=== PATIENT | male | born 1955 | race Caucasian/White ===

== ENCOUNTER 2016-08-29 16:59 | Emergency (ER) | payer OTHER ==
[~2016-08-29] VITALS: Ht 167.6 cm; Wt 76.0 kg
[2016-08-29 17:00] VITALS: BP 192/90; PULSE 84; RESP 20; TEMP 98.7; O2SAT 96
[2016-08-29] MEDS ORDERED: LISI10TA3 PO (18:41)
[2016-08-29] MEDS ORDERED: DULO20 PO (18:43)
--- NOTE | 2016-08-29 19:03 | PD ---
HPI . "hernias" Chief Complaint: Abdominal Pain Time Seen by Provider: 18:35 Travel History International Travel<30 days: No Contact w/Intl Traveler<30days: No Traveled to known affect area: No History of Present Illness HPI 61-year-old male comes in complaining of "I have 3 hernias that are very painful ". Patient reports that he has had 2 hernias in his groin and one umbilical hernia. Reports that they have been getting progressively more painful over the past few months. He comes in today because he says his pain was severe. He has been living in [facility] for 5 months. He typically sees a nurse practitioner in [place] but has never seen a surgeon for his hernias. He also reports a "large bump" on his testicle which has been there for a few months. Patient denies any fevers, chills, nausea, vomiting, chest pain or shortness of breath. Reports dark urine, low back pain, and abdominal tenderness associated with the hernias. PFSH Past Medical History Cardiovascular Problems: Yes (HTN) Respiratory: Yes (COPD) Social History Alcohol Use: Yes Tobacco Use: Yes Substance Use: No Allergies-Medications (Allergen,Severity, Reaction): Coded Allergies: Penicillin (Verified Allergy, Severe, VOMITING, 08/29/16) Reported Meds & Prescriptions Reported Meds & Active Scripts Active Reported Cymbalta DR (Duloxetine HCl) 20 Mg Capdr 20 Mg PO DAILY Lisinopril 10 Mg Tab 10 Mg PO DAILY Review of Systems General / Constitutional: No: Fever, Chills, Weight Loss HENT: No: Headaches Cardiovascular: No: Chest Pain or Discomfort Respiratory: No: Shortness of Breath Gastrointestinal: Positive: Diarrhea, Abdominal Pain, No: Nausea, Vomiting Genitourinary: Positive: Dysuria, No: Frequency Musculoskeletal: Positive: Pain (low back pain) Physical Exam Narrative GENERAL: alert and awake in no acute distress. SKIN: Warm and dry. HEAD: Atraumatic. Normocephalic. EYES: Pupils equal and round. ENT: No nasal bleeding or discharge. Mucous membranes pink and moist. NECK: Trachea midline. Neck supple. CARDIOVASCULAR: Regular rate and rhythm, no murmurs. RESPIRATORY: good air movement bilaterally. Coarse breath sounds. No accessory muscle use. GASTROINTESTINAL: Abdomen soft and nondistended. Patient winced in pain when initially palpated but when he was distracted he was non-tender. Umbilical hernia is easily reducible. : No inguinal hernias appreciated. 2 cm mass in scrotum which was freely mobile and not attached to testicle. Purple in color. MUSCULOSKELETAL: No obvious deformities. No edema. NEUROLOGICAL: Awake and alert. No obvious cranial nerve deficits. Motor grossly within normal limits. Normal speech. PSYCHIATRIC: Appropriate mood and affect; insight and judgment normal. Data Data Last Documented VS Vital Signs Date Time Temp Pulse Resp B/P Pulse Ox O2 Delivery O2 Flow Rate FiO2 08/29/16 17:00 98.7 84 20 192/90 96 Room Air Orders Urinalysis - C+S If Indicated (08/29/16 18:50) Ketorolac Inj (Toradol Inj) (08/29/16 19:30) Labs Laboratory Tests Test 08/29/16 19:37 Urine Color YELLOW Urine Turbidity CLEAR Urine pH 6.5 Urine Specific [place] 1.006 Urine Protein 100 mg/dL Urine Glucose (UA) NEG mg/dL Urine Ketones NEG mg/dL Urine Occult Blood SMALL Urine Nitrite NEG Urine Bilirubin NEG Urine Urobilinogen LESS THAN 2.0 MG/DL Urine Leukocyte Esterase SMALL Urine RBC 2 /hpf Urine WBC 5 /hpf Urine Squamous Epithelial <1 /hpf Cells Microscopic Urinalysis Comment CULT NOT INDICATED MDM Medical Decision Making Medical Screen Exam Complete: Yes Emergency Medical Condition: Yes Differential Diagnosis Differential includes hernia, UTI, nephrolithiasis, pancreatitis, epididymitis. Narrative Course Patient presents complaining of various hernias that are painful. He reports they are getting progressively worse. Patient only had one umbilical hernia on exam which was easily reducible. A small mass was appreciated in the scrotum. This is amenable to outpatient evaluation, no emergent condition at this time. Patient will be referred to urology and general surgery. Laboratory Tests Test 08/29/16 19:37 Urine Color YELLOW Urine Turbidity CLEAR Urine pH 6.5 Urine Specific [place] 1.006 Urine Protein 100 mg/dL Urine Glucose (UA) NEG mg/dL Urine Ketones NEG mg/dL Urine Occult Blood SMALL Urine Nitrite NEG Urine Bilirubin NEG Urine Urobilinogen LESS THAN 2.0 MG/DL Urine Leukocyte Esterase SMALL Urine RBC 2 /hpf Urine WBC 5 /hpf Urine Squamous Epithelial <1 /hpf Cells Microscopic Urinalysis Comment CULT NOT INDICATED The history, exam, diagnostic testing, and current condition do not suggest any significant pathology to warrant further testing, continued ED treatment, admission, or surgical evaluation at this point. The patient's condition is stable and appropriate for discharge. Diagnosis Primary Impression: Umbilical hernia Qualified Code: K42.9 - Umbilical hernia without obstruction and without gangrene Additional Impressions: Bilateral groin pain Scrotal mass Referrals: Rustam Anne MD, Andrew W. MD Patient Instructions: General Instructions, Umbilical Hernia (DC) Disposition: 01 DISCHARGE HOME Condition: Stable Lizbet Ventura MD Aug 29, 2016 19:03
[2016-08-29] MEDS ORDERED: KETOROLAC TROMETHAMINE 30 MG/ML (IVP) VIAL IV PUSH ONE (19:30)
[2016-08-29 20:23] LABS: BLOOD, URINE SMALL (NEG); COMMENT (UR) CULT NOT INDICATED; CULTURE IF INDICATED CULT NOT INDICATED; GLUCOSE,URINE NEG (NEG); KETONE, URINE NEG (NEG); NITRITE,URINE NEG (NEG); PH, URINE 6.5 (5.0-8.5); SQUAMOUS EPITHELIAL CELL URINE <1 /hpf (0-5); URINE COLOR YELLOW (YELLW/STRAW)
== END 2016-08-29 21:26 | disposition home or self-care (01) ==
LOC: NEPD 16:59
DX: K42.9 Umbilical hernia without obstruction or gangrene (principal); I10 Essential (primary) hypertension; J44.9 Chronic obstructive pulmonary disease, unspecified; Z72.0 Tobacco use
CPT/HCPCS: 81001; 96374; 99284; J1885

== ENCOUNTER 2017-02-25 15:13 | Emergency (ER) | payer OTHER ==
[~2017-02-25 15:13] MED LIST: DULO20 PO; LISI10TA3 PO
[2017-02-25 15:28] VITALS: BP 201/98; PULSE 80; RESP 18; TEMP 97.9; O2SAT 96
[2017-02-25] MEDS ORDERED: SODIUM CHLOR 0.9% 1000 ML INJ 1,000 ML IV SCH (16:01)
[2017-02-25] MEDS ORDERED: THIAMINE INJ 100 MG in SODIUM CHLORIDE 0.9% INJ 100 ML IV ONE (16:15)
[2017-02-25] MEDS ORDERED: chlordiazePOXIDE 25 MG CAP PO ONE (16:15)
[2017-02-25] MEDS ORDERED: SODIUM CHLORIDE 0.9% FLUSH 10 ML FLUSH IV FLUSH PRN (16:15)
[2017-02-25 16:51] VITALS: O2SAT 99
--- NOTE | 2017-02-25 17:02 | RADRPT ---
EXAM DATE/TIME: 02/25/2017 16:46 [facility] COMPARISON: No previous studies available for comparison. INDICATIONS : Altered mental status. Fall. Left facial abrasions. RADIATION DOSE: 50.48 CTDIvol (mGy) MEDICAL HISTORY : Chronic obstructive pulmonary disease. Hypertension. SURGICAL HISTORY : None. ENCOUNTER: Initial ACUITY: 1 day PAIN SCALE: 6/10 LOCATION: cranial TECHNIQUE: Multiple contiguous axial images were obtained of the head. Using automated exposure control and adj ustment of the mA and/or kV according to patient size, radiation dose was kept as low as reasonably a chievable to obtain optimal diagnostic quality images. DICOM format image data is available electro nically for review and comparison. FINDINGS: Noncontrast axial head CT demonstrates the ventricles to be normal in size and configuration with a n ormal sulcal pattern. No acute intracranial hemorrhage, acute cortical infarction, mass or midline sh ift is seen. Posterior fossa structures are unremarkable. Bone windows are unremarkable. There is mucosal disease in the left middle ear and mastoid CONCLUSION: 1. No evidence of acute intracranial pathology. No masses are identified. 2. Left otomastoiditis Wicho Thao MD on February 25, 2017 at 16:59 Board Certified Radiologist. This report was verified electronically.
[2017-02-25 17:13] LABS: BILIRUBIN, URINE NEG (NEG); BLOOD, URINE SMALL (NEG); GLUCOSE,URINE NEG (NEG); KETONE, URINE NEG (NEG); NITRITE,URINE NEG (NEG); URINE COLOR LIGHT-YELLOW (YELLW/STRAW); URINE LEUKOCYTE ESTERASE NEG (NEG)
[2017-02-25 17:14] LABS: ALBUMIN 3.6 GM/DL (3.4-5.0); ALT (GPT) 86 U/L (12-78); AST (GOT) 106 U/L (15-37); BICARBONATE 17.4 MEQ/L (21.0-32.0); BLOOD UREA NITROGEN 8 MG/DL (7-18); CALCIUM 8.5 MG/DL (8.5-10.1); CHLORIDE 107 MEQ/L (98-107); CREATININE 0.84 MG/DL (0.60-1.30); GLOMERULAR FILTRATION RATE 94 ML/MIN (>89); GLUCOSE,RANDOM 79 MG/DL (74-106); SODIUM (NA) 137 MEQ/L (136-145)
[2017-02-25 17:17] LABS: ALKALINE PHOSPHATASE 160 U/L (45-117); TOTAL PROTEIN 8.5 GM/DL (6.4-8.2)
--- NOTE | 2017-02-25 18:34 | PD ---
HPI Chief Complaint: Alcohol/Drug Intoxication Time Seen by Provider: 15:58 Travel History International Travel<30 days: No Contact w/Intl Traveler<30days: No Traveled to known affect area: No History of Present Illness HPI 61-year-old male brought in under the [place]'s act intoxication. Patient was in his home drinking when he fell due to his inebriation. His landlord called the ambulance and he was brought here. Patient has multiple superficial abrasions. His landlord states she does not want him back. The patient has no complaints of significant pain at this time. Patient has superficial abrasion to the left adventism and forehead, right ring finger, and left proximal lateral forearm. Patient is allergic to penicillin. [facility] Past Medical History Medical History: Unable to Obtain Cardiovascular Problems: Yes (HTN) Respiratory: Yes (COPD) ?: Not Past Surgical History Surgical History: Unable to Obtain Social History Alcohol Use: Yes Tobacco Use: Yes Substance Use: No Allergies-Medications (Allergen,Severity, Reaction): Coded Allergies: penicillin G (Unverified Allergy, Severe, VOMITING, 02/25/17) Reported Meds & Prescriptions Reported Meds & Active Scripts Active Reported Cymbalta DR (Duloxetine HCl) 20 Mg Capdr 20 Mg PO DAILY Lisinopril 10 Mg Tab 10 Mg PO DAILY Review of Systems ROS Limitations: Intoxication Except as stated in HPI: all other systems reviewed are Neg General / Constitutional: No: Fever Eyes: No: Visual changes HENT: No: Headaches Cardiovascular: No: Chest Pain or Discomfort Respiratory: No: Shortness of Breath Gastrointestinal: No: Abdominal Pain Genitourinary: No: Dysuria Musculoskeletal: No: Pain Skin: No Rash Neurologic: No: Weakness Psychiatric: No: Depression Endocrine: No: Polydipsia Hematologic/Lymphatic: No: Easy Bruising Physical Exam Exam Limitations: Intoxication Narrative GENERAL: Patient is intoxicated but in no obvious distress. SKIN: Warm and dry. Normal color. Normal turgor. Patient has superficial abrasions to the left adventism and left lateral forehead, also to the right medial ring finger, and the left proximal lateral elbow. Bleeding is controlled at all of these wounds. These are not suturable wounds. HEAD: Atraumatic. Normocephalic. EYES: Pupils equal and round. No scleral icterus. No injection or drainage. ENT: No nasal bleeding or discharge. Mucous membranes pink and moist. No obvious dental trauma. Pharynx is clear. Airway is patent. NECK: Trachea midline. No bony tenderness or step-off. Range of motion is full and nontender. CARDIOVASCULAR: Regular rate and rhythm. RESPIRATORY: No accessory muscle use. Clear to auscultation. Breath sounds equal bilaterally. GASTROINTESTINAL: Abdomen soft, non-tender, nondistended. Hepatic and splenic margins not palpable. MUSCULOSKELETAL: Extremities without clubbing, cyanosis, or edema. No obvious deformities. NEUROLOGICAL: Awake and alert. No obvious cranial nerve deficits. Motor grossly within normal limits. Five out of 5 muscle strength in the arms and legs. Normal speech. PSYCHIATRIC: Appropriate mood and affect; insight and judgment normal. Data Data Last Documented VS Vital Signs Date Time Temp Pulse Resp B/P (MAP) Pulse Ox O2 Delivery O2 Flow Rate FiO2 02/25/17 16:51 99 Room Air 02/25/17 15:28 97.9 80 18 201/98 (132) Orders Orders Complete Blood Count With Diff (02/25/17 16:01) Comprehensive Metabolic Panel (02/25/17 16:01) Urinalysis - C+S If Indicated (02/25/17 16:01) Ct Brain W/O Iv Contrast(Rout) (02/25/17 16:01) Ecg Monitoring (02/25/17 16:01) Iv Access Insert/Monitor (02/25/17 16:01) Oximetry (02/25/17 16:01) Sodium Chloride 0.9% Flush (Ns Flush) (02/25/17 16:15) Sodium Chlor 0.9% 1000 Ml Inj (Ns 1000 M (02/25/17 16:01) Thiamine Inj (Thiamine Inj) (02/25/17 16:15) Alcohol (Ethanol) (02/25/17 16:01) Chlordiazepoxide (Librium) (02/25/17 16:15) Wound Care (02/25/17 16:36) Labs Laboratory Tests Test 02/25/17 16:30 Urine Color LIGHT-YELLOW Urine Turbidity CLEAR Urine pH 7.0 Urine Specific [place] 1.003 Urine Protein 100 mg/dL Urine Glucose (UA) NEG mg/dL Urine Ketones NEG mg/dL Urine Occult Blood SMALL Urine Nitrite NEG Urine Bilirubin NEG Urine Urobilinogen LESS THAN 2.0 MG/DL Urine Leukocyte Esterase NEG Urine RBC LESS THAN 1 /hpf Microscopic Urinalysis Comment CATH-CULT NOT IND Blood Urea Nitrogen 8 MG/DL Creatinine 0.84 MG/DL Random Glucose 79 MG/DL Total Protein 8.5 GM/DL Albumin 3.6 GM/DL Calcium Level 8.5 MG/DL Alkaline Phosphatase 160 U/L Aspartate Amino Transf (AST/SGOT) 106 U/L Alanine Aminotransferase (ALT/SGPT) 86 U/L Total Bilirubin 1.0 MG/DL Sodium Level 137 MEQ/L Potassium Level 3.7 MEQ/L Chloride Level 107 MEQ/L Carbon Dioxide Level 17.4 MEQ/L Anion Gap 13 MEQ/L Estimat Glomerular Filtration Rate 94 ML/MIN Ethyl Alcohol Level 393 MG/DL [facility] Medical Decision Making Medical Screen Exam Complete: Yes Emergency Medical Condition: Yes Medical Record Reviewed: Yes Differential Diagnosis Facundo's act. Intoxication. Fall. Multiple abrasions. Head contusion. Narrative Course CT of the head is ordered. Dressings are performed to all areas abrasions. Patient is given Librium 5 mg by mouth. CBC, CMP, and serum alcohol level ordered CT shows no acute findings per radiologist. 1900 hrs., patient is stable and sleeping. Care of the patient will be turned over to Hilario Macdonald PA-C. Final disposition will be determined by him. Condition: Stable Jorge Manriquez Feb 25, 2017 18:34
--- NOTE | 2017-02-25 21:58 | PD ---
Physical Exam Date Seen by Provider: Feb 25, 2017 Time Seen by Provider: 21:56 Data Data Last Documented VS Vital Signs Date Time Temp Pulse Resp B/P (MAP) Pulse Ox O2 Delivery O2 Flow Rate FiO2 02/25/17 16:51 99 Room Air 02/25/17 15:28 97.9 80 18 201/98 (132) Orders Orders Complete Blood Count With Diff (02/25/17 16:01) Comprehensive Metabolic Panel (02/25/17 16:01) Urinalysis - C+S If Indicated (02/25/17 16:01) Ct Brain W/O Iv Contrast(Rout) (02/25/17 16:01) Ecg Monitoring (02/25/17 16:01) Iv Access Insert/Monitor (02/25/17 16:01) Oximetry (02/25/17 16:01) Sodium Chloride 0.9% Flush (Ns Flush) (02/25/17 16:15) Sodium Chlor 0.9% 1000 Ml Inj (Ns 1000 M (02/25/17 16:01) Thiamine Inj (Thiamine Inj) (02/25/17 16:15) Alcohol (Ethanol) (02/25/17 16:01) Chlordiazepoxide (Librium) (02/25/17 16:15) Wound Care (02/25/17 16:36) Ed Discharge Order (02/25/17 21:55) Ibuprofen (Motrin) (02/25/17 22:00) Ice/Cold Pack (02/25/17 21:59) Labs Laboratory Tests Test 02/25/17 16:30 Urine Color LIGHT-YELLOW Urine Turbidity CLEAR Urine pH 7.0 Urine Specific [place] 1.003 Urine Protein 100 mg/dL Urine Glucose (UA) NEG mg/dL Urine Ketones NEG mg/dL Urine Occult Blood SMALL Urine Nitrite NEG Urine Bilirubin NEG Urine Urobilinogen LESS THAN 2.0 MG/DL Urine Leukocyte Esterase NEG Urine RBC LESS THAN 1 /hpf Microscopic Urinalysis Comment CATH-CULT NOT IND Blood Urea Nitrogen 8 MG/DL Creatinine 0.84 MG/DL Random Glucose 79 MG/DL Total Protein 8.5 GM/DL Albumin 3.6 GM/DL Calcium Level 8.5 MG/DL Alkaline Phosphatase 160 U/L Aspartate Amino Transf (AST/SGOT) 106 U/L Alanine Aminotransferase (ALT/SGPT) 86 U/L Total Bilirubin 1.0 MG/DL Sodium Level 137 MEQ/L Potassium Level 3.7 MEQ/L Chloride Level 107 MEQ/L Carbon Dioxide Level 17.4 MEQ/L Anion Gap 13 MEQ/L Estimat Glomerular Filtration Rate 94 ML/MIN Ethyl Alcohol Level 393 MG/DL [facility] Medical Record Reviewed: Yes Supervised Visit with CHRISTI: Yes Interpretation(s) Laboratory Tests Test 02/25/17 16:30 Urine Color LIGHT-YELLOW Urine Turbidity CLEAR Urine pH 7.0 Urine Specific [place] 1.003 Urine Protein 100 mg/dL Urine Glucose (UA) NEG mg/dL Urine Ketones NEG mg/dL Urine Occult Blood SMALL Urine Nitrite NEG Urine Bilirubin NEG Urine Urobilinogen LESS THAN 2.0 MG/DL Urine Leukocyte Esterase NEG Urine RBC LESS THAN 1 /hpf Microscopic Urinalysis Comment CATH-CULT NOT IND Blood Urea Nitrogen 8 MG/DL Creatinine 0.84 MG/DL Random Glucose 79 MG/DL Total Protein 8.5 GM/DL Albumin 3.6 GM/DL Calcium Level 8.5 MG/DL Alkaline Phosphatase 160 U/L Aspartate Amino Transf (AST/SGOT) 106 U/L Alanine Aminotransferase (ALT/SGPT) 86 U/L Total Bilirubin 1.0 MG/DL Sodium Level 137 MEQ/L Potassium Level 3.7 MEQ/L Chloride Level 107 MEQ/L Carbon Dioxide Level 17.4 MEQ/L Anion Gap 13 MEQ/L Estimat Glomerular Filtration Rate 94 ML/MIN Ethyl Alcohol Level 393 MG/DL Last [address] 02/25/17 1601 Signed Impressions: Service Date/Time: Saturday, February 25, 2017 16:46 - CONCLUSION: 1. No evidence of acute intracranial pathology. No masses are identified. 2. Left otomastoiditis Wicho Thao MD Differential Diagnosis Rest. Increase fluids. Avoid alcohol. Avoid illegal substances. Follow-up with [facility] Navarrete for detox. Do not operate a car or any heavy machinery under the influence of alcohol or drugs. Follow-up with a medical doctor this week. Return to the ER for emergencies Narrative Course Patient is up and independently ambulatory. He is becoming argumentative and consultation with the nursing staff. Patient is exhibiting sobriety. He is walking with a steady gait. He does not appear to be intoxicated. Patient complains of pain in his left face. He is given Motrin 600 mg by mouth and ice pack. The patient has eaten and has drank Gatorade here in the ER. It is my clinical impression that the patient is sober and can be discharged at this time. Alcohol Intoxication Diagnosis Primary Impression: alcohol intoxication Additional Impression: Bilateral groin pain Patient Instructions: General Instructions Additional Instruction: Rest. Increase fluids. Avoid alcohol. Avoid illegal substances. Follow-up with [facility] Navarrete for detox. Do not operate a car or any heavy machinery under the influence of alcohol or drugs. Follow-up with a medical doctor this week. Return to the ER for emergencies Disposition: 01 DISCHARGE HOME Condition: Stable Crow Hughes Feb 25, 2017 21:58
[2017-02-25] MEDS ORDERED: IBUPROFEN 600 MG TAB PO ONE (22:00)
[2017-02-25 23:34] VITALS: BP 109/56; PULSE 88; RESP 16; O2SAT 96
== END 2017-02-26 01:55 | disposition home or self-care (01) ==
LOC: NEPD 15:13
DX: F10.129 Alcohol abuse with intoxication, unspecified (principal); R10.31 Right lower quadrant pain; R10.32 Left lower quadrant pain; I10 Essential (primary) hypertension; S00.81XA Abrasion of other part of head, initial encounter; W19.XXXA Unspecified fall, initial encounter; Y92.009 Unspecified place in unspecified non-institutional (private) residence as the place of occurrence of the external cause; Y90.8 Blood alcohol level of 240 mg/100 ml or more; Z72.0 Tobacco use; Z79.899 Other long term (current) drug therapy
CPT/HCPCS: 70450; 80053; 80307; 81001; 99285

== ENCOUNTER 2017-02-26 03:37 | Emergency (ER) | payer OTHER ==
[~2017-02-26] VITALS: Ht 165.1 cm; Wt 75.0 kg
[2017-02-26 03:42] VITALS: BP 164/85; PULSE 98; RESP 20; TEMP 97.9; O2SAT 96
[2017-02-26] MEDS ORDERED: RESP: ALBUTEROL 2.5 MG/IPRATROPIUM 0.5 MG NEB (SCH) INH ONE (04:00)
[2017-02-26] MEDS: RESP: ALBUTEROL 2.5 MG/3 ML NEB (SCH) INH ×2 (04:09→04:10)
--- NOTE | 2017-02-26 04:16 | PD ---
HPI Chief Complaint: Respiratory Symptoms Time Seen by Provider: 03:51 Travel History International Travel<30 days: No Contact w/Intl Traveler<30days: No Traveled to known affect area: No History of Present Illness HPI This is a 61-year-old gentleman who was seen previously last night for alcohol intoxication and abrasions to the hands, who presents today requesting breathing treatments for his COPD. The patient states that he still smokes. He states that he was waiting for the bus when he realized he had not had a recent breathing treatment. He denies any fevers, chills. The patient also reports he has abdominal wall hernias. He states he has chronic knee pain as well. There are no other complaints time of my examination. PFSH Past Medical History Arthritis: Yes (osteoarthritis) Cardiovascular Problems: Yes (HTN) COPD: Yes Diminished Hearing: No Inguinal Hernia: Yes (and umbelicus) Respiratory: Yes (COPD) Tetanus Vaccination: Unknown Past Surgical History Other Surgery: Yes (nasal sx from Fx) Social History Alcohol Use: Yes (daily) Tobacco Use: Yes Substance Use: No Allergies-Medications (Allergen,Severity, Reaction): Coded Allergies: Penicillins (Verified Allergy, Intermediate, 02/26/17) vomiting Reported Meds & Prescriptions Reported Meds & Active Scripts Active Reported Cymbalta DR (Duloxetine HCl) 20 Mg Capdr 20 Mg PO DAILY Lisinopril 10 Mg Tab 10 Mg PO DAILY Review of Systems Except as stated in HPI: all other systems reviewed are Neg General / Constitutional: No: Fever, Chills HENT: No: Headaches, Neck Pain Cardiovascular: No: Chest Pain or Discomfort, Palpitations Respiratory: Positive: Cough, Wheezing, No: Shortness of Breath Gastrointestinal: No: Nausea, Vomiting, Abdominal Pain Genitourinary: No: Frequency, Dysuria Musculoskeletal: Positive: Pain (chronic knee pain ) Physical Exam Narrative GENERAL: Disheveled male in no acute rest her distress. SKIN: Focused skin assessment warm/dry. HEAD: Normocephalic/atraumatic. EYES: No scleral icterus. No injection or drainage. NECK: Supple, trachea midline. No JVD or lymphadenopathy. CARDIOVASCULAR: Regular rate and rhythm without murmurs, gallops, or rubs. RESPIRATORY: Bilateral expiratory wheezing. No Rales appreciated. GASTROINTESTINAL: Abdomen soft, non-tender, nondistended. NEUROLOGICAL: Awake and alert. Cranial nerves II through XII intact. Motor grossly within normal limits. Five out of 5 muscle strength in all muscle groups. Normal speech. Data Data Last Documented VS Vital Signs Date Time Temp Pulse Resp B/P (MAP) Pulse Ox O2 Delivery O2 Flow Rate FiO2 02/26/17 03:42 97.9 98 20 164/85 (111) 96 Orders Orders Chest, Single Ap (02/26/17 03:58) Albuterol-Ipratropium Neb (Duoneb Neb) (02/26/17 04:00) Albuterol Neb (Albuterol Neb) (02/26/17 04:00) Ketorolac Inj (Toradol Inj) (02/26/17 06:30) MDM Medical Decision Making Medical Screen Exam Complete: Yes Emergency Medical Condition: Yes Differential Diagnosis COPD exacerbation versus pneumonia versus bronchitis Narrative Course Do not year-old male history of polysubstance abuse, tobacco use, presents here with complaints of shortness of breath and wheezing. Patient also complaining of joint pain. He was complaining of that when he was previously seen. He has no new injuries. He's been given 3 nebulizer treatments. Chest x-ray shows no evidence of acute infiltrate. He's been also given Toradol 60 mg IM 1. He'll be observed and discharged. I will have him ready for discharge and when he is appropriately awake, he can go home. He'll need case management to evaluate him to get him back to his home. Diagnosis Primary Impression: Reactive airway disease Additional Impressions: Tobacco abuse Chronic joint pain Poor social situation Additional Instructions: Stop smoking cigarettes Disposition: 01 DISCHARGE HOME Condition: Stable Alexander Anthony MD Feb 26, 2017 04:15
--- NOTE | 2017-02-26 04:59 | RADRPT ---
EXAM DATE/TIME: 02/26/2017 04:17 [facility] COMPARISON: No previous studies available for comparison. INDICATIONS : Short of breath. MEDICAL HISTORY : None. SURGICAL HISTORY : None. ENCOUNTER: Initial ACUITY: 1 day PAIN SCORE: 0/10 LOCATION: Bilateral chest FINDINGS: A single view of the chest demonstrates the lungs to be symmetrically aerated without evidence of mas s, infiltrate or effusion. The cardiomediastinal contours are unremarkable. Osseous structures are intact. CONCLUSION: Normal examination. Compa Hdz Jr., MD on February 26, 2017 at 4:58 Board Certified Radiologist. This report was verified electronically.
[2017-02-26] MEDS ORDERED: KETOROLAC TROMETHAMINE 60 MG/2 ML (IM) VIAL IM ONE (06:30)
[2017-02-26 07:00] VITALS: BP 159/81; PULSE 91; RESP 17; O2SAT 97
== END 2017-02-26 09:28 | disposition home or self-care (01) ==
LOC: NEPE 03:37
DX: J44.9 Chronic obstructive pulmonary disease, unspecified (principal); G89.29 Other chronic pain; M25.569 Pain in unspecified knee; M19.90 Unspecified osteoarthritis, unspecified site; I10 Essential (primary) hypertension; F17.210 Nicotine dependence, cigarettes, uncomplicated
CPT/HCPCS: 71045; 94640; 94664; 96372; 99283; J1885; J7613